=== PATIENT | female | born 1995 | race African-American/Black ===

== ENCOUNTER 2018-04-28 20:51 | Inpatient (IN) ==
[2018-04-28] MEDS ORDERED: Morphine Inj 4 MG/ML Vial ONE (20:58)
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
[2018-04-28 21:24] LABS: Baso # (Auto) 0.1 th/mm3 (0.0-0.2); Baso % (Auto) 1.1 % (0.0-2.0); Eos # (Auto) 0.1 th/mm3 (0.0-0.4); Eos % (Auto) 0.9 % (0.0-4.0); Hematocrit 38.2 % (35.0-46.0); Hemoglobin 13.6 gm/dL (11.6-15.3); Lymph # (Auto) 5.7 th/mm3 (1.0-4.8); Lymph % (Auto) 55.8 % (9.0-44.0); Mean Corpuscular HGB Conc 35.6 % (32.0-36.0); Mean Corpuscular Hemoglobin 33.5 pg (27.0-34.0); Mean Corpuscular Volume 94.2 fL (80.0-100.0); Mean Platelet Volume 8.3 fL (7.0-11.0); Mono # (Auto) 0.6 th/mm3 (0.0-0.9); Mono % (Auto) 5.9 % (0.0-8.0); Neut # (Auto) 3.7 th/mm3 (1.8-7.7); Neut % (Auto) 36.3 % (16.0-70.0); Platelet Count 323 th/mm3 (150-450); Red Blood Count 4.06 mil/mm3 (4.00-5.30); Red Cell Distribution Width 12.7 % (11.6-17.2); White Blood Count 10.2 th/mm3 (4.0-11.0)
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
[2018-04-28 21:45] LABS: Activated Partial Thrombo Time 21.2 sec (23.4-31.7); Prothrombin Time 10.6 sec (9.8-11.6)
[2018-04-28 21:53] LABS: Lymphocytes 41 % (9-44); Monocytes 4 % (0-8); Platelet Estimate Normal (Normal); Platelet Morphology Normal (Normal); RBC Morphology Normal (Normal)
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
[2018-04-28] MEDS ORDERED: Morphine Inj 4 MG/ML Vial IV.PUSH ONE (22:02)
[2018-04-28] MEDS ORDERED: Sod Chloride 0.9% Inj 1,000 ML IV.SIG ONE (22:02)
[2018-04-28 22:16] LABS: Anion Gap 9 meq/L (5-15); Blood Urea Nitrogen 15 mg/dL (7-18); Calcium 8.6 mg/dL (8.5-10.1); Carbon Dioxide 23.8 meq/L (21.0-32.0); Chloride 108 meq/L (98-107); Glomerular Filtration Rate 46 mL/min (>89); Glucose,Random 130 mg/dL (74-106); Sodium 141 meq/L (136-145)
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
[2018-04-28 22:34] LABS: Potassium 2.7 meq/L (3.5-5.1)
[2018-04-28] MEDS: Potassium Chlor 20 mEq Premix 20 MEQ/100 ML PIGGYBACK IV.SIG SCH (22:38)
[2018-04-28] MEDS ORDERED: HYDROmorphone PF Inj 2 MG/ML Vial IV.PUSH ONE (23:43)
[2018-04-29] MEDS: Potassium Chlor 20 mEq Premix 20 MEQ/100 ML PIGGYBACK IV.SIG SCH (00:51)
[2018-04-29] MEDS: Morphine Inj 4 MG/ML Vial IV.PUSH PRN ×4 (05:58→18:47)
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
[2018-04-29] MEDS ORDERED: Acetaminophen 325 MG Tablet PO PRN (11:38)
[2018-04-29] MEDS ORDERED: ceFAZolin Inj 1 GM Vial (Addvantage) IV.SIG ONE (13:13)
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
[2018-04-29] MEDS ORDERED: Post-op Orders (for Pharmacy) OTHER STA (14:54)
--- NOTE | 2018-04-29 14:54 | P.PNOP ---
Subjective Interval history: POD#0 IMN R femur Physical Exam Vital signs: Vital Signs 04/28/18 20:52 04/28/18 21:37 04/28/18 21:44 Temperature Pulse Rate 103 H Respiratory Rate 18 Blood Pressure 140/94 H Pulse Oximetry 100 100 100 04/28/18 23:06 04/29/18 02:41 04/29/18 04:18 Temperature 98 F Pulse Rate 100 H 102 H 80 Respiratory Rate 18 16 18 Blood Pressure 133/80 138/90 124/76 Pulse Oximetry 100 98 99 04/29/18 06:07 04/29/18 06:08 04/29/18 07:00 Temperature 99.3 F Pulse Rate 102 H 102 H 92 H Respiratory Rate 20 22 Blood Pressure 131/83 121/80 Pulse Oximetry 100 100 04/29/18 08:00 04/29/18 08:01 04/29/18 12:00 Temperature 99.4 F Pulse Rate 98 H 93 H 86 Respiratory Rate 28 H Blood Pressure 129/93 H Pulse Oximetry 100 100 Intake & Output 04/28/18 04/29/18 04/29/18 18:59 06:59 18:59 Intake Total 2125 / 2125 1800 / 1800 Output Total 1999 / 1999 950 / 950 Balance 125 / 125 850 / 850 Weight 90.718 kg 90.7 kg Intake: IV 2124 / 2124 LR 1000 mL Inj 1,000 ML @ 125 925 / 925 mls/hr IV.SIG .Q8H BEATRIZ Rx#: [id number] KCl 20 mEq Premix Inj 20 meq In 200 / 200 100 ml @ 50 mls/hr IV.SIG Q2H BEATRIZ Rx#:[id number] NS Inj 1,000 ML @ Wide Open IV. 1000 / 1000 SIG BOLUS ONE Rx#:[id number] Anesthesia Amount 1800 / 1800 Output: Estimated Blood Loss 200 / 200 Urine Amount (Catheter) 1999 750 / 750 Indwelling Urethral Catheter 1999 750 / 750 Other: Weight On Admission 90.7 kg - Urinary Catheter Management Indwelling Urethral Catheter Cath placed during this visit: yes Reason for continuing: Hourly intake/output Insertion date: 04/28/18 Insertion time: 21:25 Results - Labs CBC & Chem 7: 04/28/18 20:55 04/29/18 06:50 Laboratory Results - last 24 hr 04/28/18 04/28/1819 20:55 20:55 20:55 WBC 10.2 RBC 4.06 Hgb 13.6 POC Hgb (Calc) 13.6 Hct 38.2 POC Hct 40.0 MCV 94.2 MCH 33.5 MCHC 35.6 RDW 12.7 Plt Count 323 MPV 8.3 Prelim Diff (Auto) Slide review pending Neut % (Auto) 36.3 Lymph % (Auto) 55.8 H [place] % (Auto) 5.9 Eos % (Auto) 0.9 Baso % (Auto) 1.1 Neut # (Auto) 3.7 Lymph # (Auto) 5.7 H [place] # (Auto) 0.6 Eos # (Auto) 0.1 Baso # (Auto) 0.1 WBC Differential Manual diff final Seg Neuts % (Manual) 55 Lymphocytes % (Manual) 41 Monocytes % (Manual) 4 Abs Neuts (Manual) 5.6 Differential Comment . Platelet Estimate Normal Platelet Morphology Normal RBC Morphology Normal PT 10.6 INR 1.0 APTT 21.2 L POC Sodium 143 Sodium POC Potassium 2.7 L* Potassium POC Chloride 104 Chloride Carbon Dioxide Anion Gap POC BUN 13 BUN Creatinine POC Creatinine 0.9 Estimated GFR POC Glucose 135 H Random Glucose Calcium Beta HCG, Qual Serum Alcohol Blood Type Antibody Screen 04/28/18 04/28/18 04/28/18 20:55 20:55 20:55 WBC RBC Hgb POC Hgb (Calc) Hct POC Hct MCV MCH MCHC RDW Plt Count MPV Prelim Diff (Auto) Neut % (Auto) Lymph % (Auto) [place] % (Auto) Eos % (Auto) Baso % (Auto) Neut # (Auto) Lymph # (Auto) [place] # (Auto) Eos # (Auto) Baso # (Auto) WBC Differential Seg Neuts % (Manual) Lymphocytes % (Manual) Monocytes % (Manual) Abs Neuts (Manual) Differential Comment Platelet Estimate Platelet Morphology RBC Morphology PT INR APTT POC Sodium Sodium 141 POC Potassium Potassium 2.7 L* POC Chloride Chloride 108 H Carbon Dioxide 23.8 Anion Gap 9 POC BUN BUN 15 Creatinine 1.03 H POC Creatinine Estimated GFR 46 L POC Glucose Random Glucose 130 H Calcium 8.6 Beta HCG, Qual Less than 1.0 Serum Alcohol Less than 3 Blood Type B Positive Antibody Screen Negative 04/29/18 06:50 WBC RBC Hgb POC Hgb (Calc) Hct POC Hct MCV MCH MCHC RDW Plt Count MPV Prelim Diff (Auto) Neut % (Auto) Lymph % (Auto) [place] % (Auto) Eos % (Auto) Baso % (Auto) Neut # (Auto) Lymph # (Auto) [place] # (Auto) Eos # (Auto) Baso # (Auto) WBC Differential Seg Neuts % (Manual) Lymphocytes % (Manual) Monocytes % (Manual) Abs Neuts (Manual) Differential Comment Platelet Estimate Platelet Morphology RBC Morphology PT INR APTT POC Sodium Sodium POC Potassium Potassium 3.7 D POC Chloride Chloride Carbon Dioxide Anion Gap POC BUN BUN Creatinine POC Creatinine Estimated GFR POC Glucose Random Glucose Calcium Beta HCG, Qual Serum Alcohol Blood Type Antibody Screen - Imaging Impressions Chest X-Ray 04/28/18 21:04 CONCLUSION: No acute cardiopulmonary disease identified. Pelvis X-Ray 04/28/18 21:04 CONCLUSION: No pelvic fracture identified. Abdomen/Pelvis CT 04/28/18 21:05 CONCLUSION: 1. Negative for acute traumatic injury within the abdomen and pelvis. Cervical Spine CT 04/28/18 21:05 CONCLUSION: No evidence of fracture. Femur X-Ray 04/28/18 21:05 CONCLUSION: Mildly displaced right femoral shaft fracture. Head CT 04/28/18 21:05 CONCLUSION: No acute intracranial findings. . Assessment and Plan - Assessment and Plan 22-year-old female, POD#0 s/p IMN R femur 1. Partial weightbearing 50% right lower extremity 2. PT for mobilization 3. Dressing changes to start on postop day 2. Xeroform, gauze and Primapore 4. Lovenox for DVT prophylaxis. Plan to switch to Xarelto for 3 weeks upon discharge 5. Follow-up in my office in 2 weeks. Plan is likely for discharge home pending progress with PT.
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
--- NOTE | 2018-04-29 15:19 | XR ---
EXAM DATE: 04/29/2018 3:11 PM EST AGE/SEX: 89 years / Female INDICATIONS: Right troch nail for femur fracture. CLINICAL DATA: This is the patient's initial encounter. Patient reports that signs and symptoms have been present for 1 day and indicates a pain score of Nonresponsive. MEDICAL/SURGICAL HISTORY: Non-responsive. Non-responsive. COMPARISON: [facility] – [place], CT ABDOMEN & PELVIS W CONTRAST, 04/28/2018. . FINDINGS: Hardware has been placed within the right femur status post ORIF. The femur is well aligned. CONCLUSION: Status post ORIF of right femur fracture with good alignment of the femur. Electronically signed by: Gene Burt MD Board Certified Radiologist 04/29/2018 3:17 PM EST
[2018-04-29] MEDS ORDERED: *Meperidine Inj 25 MG/ML Vial PERIprocedural Use ONLY ONE (15:37)
--- NOTE | 2018-04-29 15:40 | OTSOAPIP ---
ATTEMPTED TO SEE PATIENT TWICE THIS DATE. ON FIRST ATTEMPT, JHONY OTR/L ATTEMPTED TO SEE AND PATIENT WAS GOING OFF FLOOR FOR SURGICAL INTERVENTION OF RIGHT FEMUR FRACTURE. ON SECOND ATTEMPT, THIS THERAPIST AT 1530 AND PATIENT WAS STILL OFF THE FLOOR. WILL REATTEMPT NEXT DAY. INTERDISCIPLINARY COMMUNICATION: REVIEWED EMR, SPOKE WITH RN Therapist: Cora Barclay OTR/L Signature on file
[2018-04-29] MEDS ORDERED: fentaNYL Citrate Inj 100 MCG/2 ML Ampul ONE (16:16)
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
[2018-04-29] MEDS: Senna/Docusate Sodium 8.6/50 MG Tablet PO SCH (20:46)
[2018-04-29] MEDS: ceFAZolin Inj 1 GM in Sodium Chlor 0.9% Inj 100 ML IV.SIG SCH (20:46)
[2018-04-29] MEDS: Famotidine 20 MG Tablet PO SCH (20:46)
[2018-04-30] MEDS: Enoxaparin Inj 40 MG/0.4 ML Syringe SQ SCH (03:25)
[2018-04-30] MEDS ORDERED: Chlorhexidine Gluconate 2% 1 Pack (2 Cloths) TOPICAL PRN (04:00)
[2018-04-30] MEDS ORDERED: Chlorhexidine Gluconate 2% 1 Pack (2 Cloths) TOPICAL SCH (04:00)
[2018-04-30] MEDS: ceFAZolin Inj 1 GM in Sodium Chlor 0.9% Inj 100 ML IV.SIG SCH ×2 (05:30→12:58)
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
[2018-04-30 07:52] LABS: Baso % (Auto) 0.3 % (0.0-2.0); Eos % (Auto) 0.1 % (0.0-4.0); Hematocrit 33.2 % (35.0-46.0); Hemoglobin 11.2 gm/dL (11.6-15.3); Lymph # (Auto) 1.6 th/mm3 (1.0-4.8); Lymph % (Auto) 21.9 % (9.0-44.0); Mean Corpuscular HGB Conc 33.8 % (32.0-36.0); Mean Corpuscular Hemoglobin 32.5 pg (27.0-34.0); Mean Platelet Volume 7.8 fL (7.0-11.0); Mono # (Auto) 0.6 th/mm3 (0.0-0.9); Mono % (Auto) 7.7 % (0.0-8.0); Neut # (Auto) 5.2 th/mm3 (1.8-7.7); Platelet Count 236 th/mm3 (150-450); Red Blood Count 3.45 mil/mm3 (4.00-5.30); Red Cell Distribution Width 12.6 % (11.6-17.2); White Blood Count 7.5 th/mm3 (4.0-11.0)
[2018-04-30] MEDS: Senna/Docusate Sodium 8.6/50 MG Tablet PO SCH ×3 (07:52→21:30)
[2018-04-30] MEDS: Famotidine 20 MG Tablet PO SCH ×3 (07:52→21:30)
[2018-04-30 08:14] LABS: Alanine Aminotransferase 52 U/L (10-53); Albumin 3.2 g/dL (3.4-5.0); Anion Gap 6 meq/L (5-15); Aspartate Aminotransferase 57 U/L (15-37); Blood Urea Nitrogen 8 mg/dL (7-18); Calcium 8.2 mg/dL (8.5-10.1); Carbon Dioxide 27.4 meq/L (21.0-32.0); Chloride 104 meq/L (98-107); Glomerular Filtration Rate 89 mL/min (>89); Glucose,Random 106 mg/dL (74-106); Potassium 3.7 meq/L (3.5-5.1); Sodium 137 meq/L (136-145)
[2018-04-30 08:16] LABS: Alkaline Phosphatase 45 U/L (45-117); Total Protein 6.5 g/dL (6.4-8.2)
--- NOTE | 2018-04-30 09:54 | P.PNOP ---
Subjective Interval history: She says she still has some pain about the thigh but overall she says she feels "fine". She has not been out of bed yet. Physical Exam Vital signs: Vital Signs 04/29/18 12:00 04/29/18 15:13 04/29/18 15:15 Temperature 98.2 F Pulse Rate 86 77 80 Respiratory Rate 14 19 Blood Pressure 123/74 137/83 Pulse Oximetry 100 97 04/29/18 15:30 04/29/18 15:45 04/29/18 16:00 Temperature Pulse Rate 76 81 79 Respiratory Rate 21 15 14 Blood Pressure 139/90 138/80 126/75 Pulse Oximetry 95 94 L 96 04/29/18 16:15 04/29/18 16:31 04/29/18 19:51 Temperature 98.2 F 97.1 F L 98.4 F Pulse Rate 92 H 70 91 H Respiratory Rate 18 16 18 Blood Pressure 127/77 136/69 119/71 Pulse Oximetry 96 99 100 04/29/18 20:00 04/29/18 23:50 04/30/18 00:40 Temperature 98.2 F Pulse Rate 87 Respiratory Rate 17 Blood Pressure 116/69 Pulse Oximetry 100 100 99 04/30/18 03:36 04/30/18 08:00 Temperature 97.7 F 98.1 F Pulse Rate 86 97 H Respiratory Rate 17 19 Blood Pressure 119/83 122/64 Pulse Oximetry 100 96 Intake & Output 04/29/18 04/30/18 04/30/18 18:59 06:59 18:59 Intake Total 2950 / 2950 1440 / 1440 Output Total 950 / 950 625 / 625 Balance 1999 815 / 815 Weight 90.7 kg 80.7 kg Intake: IV 1000 / 1000 1200 / 1200 LR 1000 mL Inj 1,000 ML @ 125 1000 / 1000 1000 / 1000 mls/hr IV.SIG .Q8H BEATRIZ Rx#: [id number] Ancef Inj 1 GM In NS Inj 100 ML 200 / 200 @ 100 mls/hr IV.SIG Q8H BEATRIZ Rx #:[id number] Oral 0 / 0 240 / 240 Anesthesia Amount 1800 / 1800 Other 150 / 150 Output: Urine 0 / 0 Estimated Blood Loss 200 / 200 Urine Amount (Catheter) 750 / 750 625 / 625 Indwelling Urethral Catheter 750 / 750 625 / 625 Other: Date of Last Bowel Movement 04/28/18 Weight On Admission 90.7 kg Narrative: The right leg dressings are clean and intact. There is mild swelling of the thigh. The compartments are soft. There is no surrounding erythema. There is no drainage. She can move the toes well on the right foot. She has a warm foot. Left ankle has no tenderness or swelling. - Urinary Catheter Management Indwelling Urethral Catheter Cath placed during this visit: yes, but has since been removed by the nurse Reason for continuing: Hourly intake/output Insertion date: 04/28/18 Insertion time: 21:25 Removal date: 04/30/18 Removal time: 07:30 Results - Labs CBC & Chem 7: 04/30/18 07:19 04/30/18 07:19 Laboratory Results - last 24 hr 04/29/18 04/30/18 04/30/18 12:05 07:19 07:19 WBC 7.5 RBC 3.45 L Hgb 11.2 L D Hct 33.2 L MCV 96.0 MCH 32.5 MCHC 33.8 RDW 12.6 Plt Count 236 MPV 7.8 Neut % (Auto) 70.0 Lymph % (Auto) 21.9 Reynolds % (Auto) 7.7 Eos % (Auto) 0.1 Baso % (Auto) 0.3 Neut # (Auto) 5.2 Lymph # (Auto) 1.6 Reynolds # (Auto) 0.6 Eos # (Auto) 0.0 Baso # (Auto) 0.0 WBC Differential . Differential Comment Auto diff final Sodium 137 Potassium 3.7 Chloride 104 Carbon Dioxide 27.4 Anion Gap 6 BUN 8 Creatinine 0.69 Estimated GFR 89 Random Glucose 106 Calcium 8.2 L Total Bilirubin 0.9 AST 57 H ALT 52 Alkaline Phosphatase 45 Total Protein 6.5 Albumin 3.2 L Nasal Screen MRSA (PCR) Not detected - Imaging Impressions Femur X-Ray 04/29/18 00:00 CONCLUSION: Status post ORIF of right femur fracture with good alignment of the femur. Chest X-Ray 04/30/18 06:00 CONCLUSION: No acute cardiopulmonary abnormality is identified. Assessment and Plan - Assessment and Plan 22-year-old female, POD#1 s/p IMN R femur 1. Partial weightbearing 50% right lower extremity 2. PT for mobilization 3. Dressing changes to start on postop day 2. Xeroform, gauze and Primapore 4. Lovenox for DVT prophylaxis. Plan to switch to Xarelto for 3 weeks upon discharge 5. Follow-up in my office in 2 weeks. Plan is likely for discharge home pending progress with PT.
[2018-04-30] MEDS: Morphine Inj 4 MG/ML Vial IV.PUSH PRN ×2 (13:00→16:23)
--- NOTE | 2018-04-30 16:36 | P.DCO ---
- Physical Therapy Order: Evaluate and treat, Improve ambulation, Strength and gait training - Home Health Nursing Order: Medical education, Signs/symptoms of disease process, Medication education-adverse effect, Nursing assessment with vital signs - Case Management Consult Case Management Consult-Home Health: Yes - Certification I have seen patient Kassi [id number] on 04/30/18. My clinical findings support the need for the requested home health care services because: Limited mobility due to disease progression, Deconditioned with increased weakness, Limited ability to care for self, High risk of falls I certify that my clinical findings support that this patient is homebound because: Post-op weakness, Unsteady gait/balance, Unsafe to leave home unassisted, Unable to use public transportation
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
[2018-05-01] MEDS: Enoxaparin Inj 40 MG/0.4 ML Syringe SQ SCH (03:01)
[2018-05-01] MEDS: Senna/Docusate Sodium 8.6/50 MG Tablet PO SCH ×2 (08:45→22:33)
[2018-05-01] MEDS: Famotidine 20 MG Tablet PO SCH ×2 (08:45→22:32)
--- NOTE | 2018-05-01 12:41 | P.PNOP ---
Subjective Interval history: She is feeling a little bit better than yesterday but she is still having trouble mobilizing. Physical Exam Vital signs: Vital Signs 04/30/18 13:58 04/30/18 16:00 04/30/18 16:23 Temperature 100.4 F H Pulse Rate 82 Respiratory Rate 18 19 18 Blood Pressure 119/72 Pulse Oximetry 98 04/30/18 16:56 04/30/18 19:40 04/30/18 23:49 Temperature 98.4 F 98.4 F Pulse Rate 95 H 88 Respiratory Rate 18 18 18 Blood Pressure 139/82 119/65 Pulse Oximetry 99 96 05/01/18 00:17 05/01/18 06:56 05/01/18 09:28 Temperature 98.3 F Pulse Rate 104 H Respiratory Rate 18 18 18 Blood Pressure 115/68 Pulse Oximetry 97 Intake & Output 04/30/18 05/01/18 05/01/18 18:59 06:59 18:59 Intake Total 2099 / 2099 Balance 2099 Intake: IV 2099 / 2099 LR 1000 mL Inj 1,000 ML @ 125 2000 / 2000 mls/hr IV.SIG .Q8H BEATRIZ Rx#: [id number] Ancef Inj 1 GM In NS Inj 100 ML 100 / 100 @ 100 mls/hr IV.SIG Q8H BEATRIZ Rx #:[id number] Other: # Voids 3 2 Date of Last Bowel Movement 04/28/18 04/28/18 Narrative: The right leg incisions are dressed and clean without drainage. Her thigh compartment is soft. Her calf is no tenderness. There is no swelling down by the lower leg. - Urinary Catheter Management Indwelling Urethral Catheter Cath placed during this visit: yes, but has since been removed by the nurse Reason for continuing: Hourly intake/output Insertion date: 04/28/18 Insertion time: 21:25 Removal date: 04/30/18 Removal time: 07:30 Results - Labs CBC & Chem 7: 04/30/18 07:19 04/30/18 07:19 Assessment and Plan - Assessment and Plan 22-year-old female, POD#2 s/p IMN R femur 1. Partial weightbearing 50% right lower extremity 2. PT for mobilization, she is still rather slow going at this time and is not ready for discharge 3. Dressing changes to start on postop day 2. Xeroform, gauze and Primapore 4. Lovenox for DVT prophylaxis. Plan to switch to Xarelto for 3 weeks upon discharge 5. Follow-up in my office in 2 weeks. Plan is likely for discharge home pending progress with PT.
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
[2018-05-02] MEDS: Enoxaparin Inj 40 MG/0.4 ML Syringe SQ SCH (03:24)
[2018-05-02] MEDS: Ketorolac Inj 30 MG/ML (IVP) Vial IV.PUSH SCH ×2 (09:25→14:48)
[2018-05-02] MEDS: Gabapentin 300 MG Capsule PO SCH ×2 (09:26→13:17)
[2018-05-02] MEDS: Senna/Docusate Sodium 8.6/50 MG Tablet PO SCH (09:26)
[2018-05-02] MEDS: Famotidine 20 MG Tablet PO SCH (09:26)
[2018-05-02 12:38] VITALS: RESP 18
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
[2018-05-02 17:08] VITALS: BP 133/87; PULSE 98; TEMP 97.5; O2SAT 100
== END 2018-05-02 18:55 | disposition home health service (06) | DRG 482 ==
LOC: NEPI 20:51 → NEDA 22:39 → EDBD 22:39 → N03 04-29 06:08 → N06 04-29 16:31
PROVIDERS: ADMIT Surgery Trauma Surgery; ATTEND Surgery Trauma Surgery
CPT/HCPCS: 51702; 70450; 71010; 71045; 72125; 72170; 73551; 73552; 74177; 76000; 80048; 80053; 80307; 84132; 84703; 85025; 85610; 85730; 86850; 86900; 86901; 87641; 90774; 90775; 90784; 94150; 96374; 96375; 97110; 97116; 97162; 97167; 99285; 99291; C1713; C1776; C8952; G0390; J0131; J0690; J1170; J1650; J1885; J2175; J2250; J2270; J2405; J3010; J3370; J3480; J7030; J7120; Q9967